=== PATIENT | female | born 1995 | race Caucasian/White ===

== ENCOUNTER 2017-01-16 19:57 | Emergency (ER) | payer BC, OTHER ==
--- NOTE | ~2017-01-16 | CR63 ---
[facility] RADIOLOGY TEXT RESULTS PATIENT: ANDRZEJ BIRMINGHAM LOCATION: SED : [birth year] UNIT #: [id number] AGE: [address]: Leonor Pinto APRN SEX: F ORDER DR: [id number] [address] [address] [id number] MR#: [id number] Acc #: [id number] NAME: ANDRZEJ BIRMINGHAM. : 1995 SEX: F STUDY DATE/TIME: 01/16/2017 20:13 UNIT: SED ROOM: STUDY DESCRIPTION: CR Chest 2 View Attending Physician: Leonor Pinto A.P.R.N. Ordering Physician: Leonor Major A.P.R.N. Primary Care Physician: Michelle Caban M.D. MEDICAL IMAGING REPORT This report is preliminary unless electronic signature is present. EXAM Chest x-ray HISTORY Cough. Sore throat, fever, vomiting and chest pain for the past 3 days. TECHNIQUE 2 views of the chest were obtained. COMPARISON 03/13/2013 FINDINGS PA and lateral examination of the chest upright shows a good expansion of the parenchyma with a normal distribution of the pulmonary vascularity. There is no indication of congestion, effusion, infiltrate, tumor, or nodular density. The pleural reflections and diaphragmatic contours are normal. The cardiac silhouette and mediastinal anatomy is within normal limits. IMPRESSION Normal chest. Dictated by... Mehrdad Patiño M.D. THIS IS AN ELECTRONICALLY VERIFIED REPORT Mehrdad Patiño M.D. at 01/18/2017 11:02 AM DARIA/clay TD: 01/17/2017 11:27 JOB #: [id number] [facility] RADIOLOGY TEXT RESULTS PATIENT: ANDRZEJ B[place]MINGHAM LOCATION: SED : [birth year] UNIT #: [id number] AGE: [address]: Leonor Pinto APRN SEX: F ORDER DR: MEDICAL IMAGING REPORT Page 1 of 1
[~2017-01-16 19:57] MED LIST: CIPRO PO; NO MEDICATIONS; PYRIDIUM100 MG PO; ROBITUSSIN A-C S5 ML PO; VOLTAREN75 MG PO; ZOFRAN ODT4 MG PO
[2017-01-16 19:58] LABS: INFLUENZA A NEG (NEG); INFLUENZA B NEG (NEG)
== END 2017-01-16 21:11 | disposition home or self-care (01) ==
LOC: SED 19:57
PROVIDERS: Emergency Medicine
DX: B34.9 Viral infection, unspecified (principal); Z87.440 Personal history of urinary (tract) infections
CPT/HCPCS: 71020; 87651; 87804; 99283

== ENCOUNTER 2017-03-26 20:59 | Emergency (ER) | payer OTHER | END 2017-03-26 21:44 | disposition home or self-care (01) | LOC: SED 20:59 | DX: S61.216A Laceration without foreign body of right little finger without damage to nail, initial encounter (principal); W45.8XXA Other foreign body or object entering through skin, initial encounter; Y92.828 Other wilderness area as the place of occurrence of the external cause | CPT/HCPCS: 99283 ==

== ENCOUNTER 2017-05-31 21:30 | Emergency (ER) | payer OTHER ==
[~2017-05-31] VITALS: Ht 162.6 cm; Wt 78.0 kg
[2017-05-31 22:20] LABS: URINE SOURCE CLEAN CATCH
[2017-05-31 22:23] LABS: URINE APPEARANCE CLEAR; URINE BILIRUBIN NEG (NEG); URINE BLOOD NEG (NEG); URINE COLOR YELLOW; URINE GLUCOSE NEG (NORM); URINE KETONE NEG (NEG); URINE LEUKOCYTE ESTERASE NEG (NEG); URINE NITRATE NEG (NEG); URINE PH 5.5 (5-8); URINE PROTEIN NEG (NEG); URINE SPECIFIC GRAVITY >=1.030 (1.003-1.035); URINE UROBILINOGEN 0.2 MG/DL (NORM)
[2017-05-31 22:24] LABS: MICRO INDICATED? NO
== END 2017-05-31 23:30 | disposition home or self-care (01) ==
LOC: SED 21:30
DX: R10.2 Pelvic and perineal pain (principal); Z88.8 Allergy status to other drugs, medicaments and biological substances
CPT/HCPCS: 81003; 84703; 87210; 87491; 87591; 87808; 87905; 99284